=== PATIENT | female | born 1955 | race Caucasian/White ===

== ENCOUNTER 2020-01-24 07:37 | Outpatient (CLI) | payer MEDICARE, MEDICAID, SELFPAY ==
--- NOTE | 2020-01-24 10:30 | DI.NM_ITS ---
APPROVED REPORT Exam: Exercise Treadmill Patient Location: Out-Patient Room/Bed: Stress Nurse: Marianela Dewitt RN BMI: 0 Baseline Rhythm: Sinus Rhythm Comment: Abnormal R wave Progression--early transition. Indications: Patient reports having heart palpitations and midsternal chest pressure (no radiation) b oth at rest and with activity for the past month. Medical History Medical History: Severe obesity, COPD, ? Sleep Apnea, Sciatica. Cardiac Medications: Hydrochlorothiazide Allergies: No known drug allergies Cardiac Risk Factors: FHX of CAD, HTN, Hyperlipidemia, COPD Previous Cardiac Procedures: None Pretest Chest Pain Characteristics: None Exercise History: Sedentary Lung Sounds: Clear to auscultation Heart Sounds: Regular Stress Test Details Test: Exercise stress testing was performed using a Ajith protocol. Nuclear Acquisition: Rest Tc-99m/Stress Tc-99m 1 day Rest Isotope: Tc-99m Sestamibi. Dose: 11.5 Date: 01/24/2020 Injection Time: 1030 Stress Isotope: Tc-99m Sestamibi. Dose: 37.6 Date: 01/24/2020 Injection Time: 1210 HR Resting HR Supine: 86 bpm Max Heart Rate (APMHR): 155 bpm Resting HR Standin bpm Target HR (85% APMHR): 131 bpm Max HR Achieved: 158 bpm % of APMHR: 101 HR response to stress: Normal HR response to stress BP Resting BP Supine: 158/76 mmHg Resting BP Standin/78 mmHg Max BP: 192/76 mmHg BP response to stress: Normal blood pressure response to stress. ECG Resting ECG: Sinus Rhythm Comment: Abnormal R wave progression--early transition Stress ECG: Sinus Tachycardia ST Change: Normal Recovery ECG: Sinus Rhythm Recovery Arrhythmia: None Clinical Reason for Termination: Dyspnea Stress Symptoms: None per patient Exercise duration: 4 min40 sec Highest Stage Reached: Stage 2: 2.5 mph at 12% grade. Exercise capacity: 6.63 METs Functional Capacity: Average Capacity Stress ECG Conclusion 1. Resting electrocardiogram was normal. Patient exercised on the Ajith protocol to a workload of 6. 63 METS and achieved 100% of predicted heart rate for age 2. Normal heart rate and blood pressure response to exercise 3. Electrocardiographically negative for myocardial ischemia 4. No significant dysrhythmia Stress Test Summary STAGE Time (mins) Speed (mph) Grade (%) HR BP SYMPTOMS METS Supine 86 158/76 Standing 107 160/78 1 3 1.7 10 138 178/64 4.6 1 min recovery 143 192/76 3 min recovery 117 176/78 6 min recovery 107 166/72 MPI Conclusion Normal myocardial perfusion scan without evidence of ischemia or prior infarction. Ejection fraction 77%. Radiologist Interpretation Radiologist agrees with Wood Gluer's Interpretation. Radiologist Interpretation by: Barbara Mart MD Interpretation Date/Time: 01/24/2020 14:10:37
== END 2020-01-24 07:57 ==
PROVIDERS: PCP Registered Nurse; Visit Provider Internal Medicine Interventional Cardiology
DX: R00.2 Palpitations (principal); R07.89 Other chest pain; R06.00 Dyspnea, unspecified; I10 Essential (primary) hypertension; E78.5 Hyperlipidemia, unspecified; J44.9 Chronic obstructive pulmonary disease, unspecified; Z82.49 Family history of ischemic heart disease and other diseases of the circulatory system
CPT/HCPCS: 78452; 93016; 93018; 93017

== ENCOUNTER 2022-12-23 11:46 | Outpatient (CLI) | payer OTHER, MEDICAID, SELFPAY ==
--- NOTE | 2022-12-23 11:08 | DI.RAD_ITS ---
Exam(s) XR STANDING ALIGNMENT EXAM: XR STANDING ALIGNMENT CLINICAL HISTORY: right knee pain. TECHNIQUE: 2D digital imaging was performed. COMPARISON: No exams were available for comparison FINDINGS: 3 views There is [id number] narrowing of the medial compartment of right knee Verus deformity. Lateral com partment is relatively preserved. There is mild narrowing of the medial compartment of the opposite- left knee. Lateral compartment left knee appears unremarkable. Degenerative changes are noted in th e left ankle joint. Mild narrowing of hip joint spaces bilaterally. IMPRESSION: As above. DATA REPOSITORY: RADIATION DOSE DELIVERED:
--- NOTE | 2022-12-23 11:12 | DI.RAD_ITS ---
Exam(s) XR KNEE RT 1V EXAM: XR KNEE RT 1V CLINICAL HISTORY: right knee DJD. TECHNIQUE: 2D digital imaging was performed. COMPARISON: CR XR STANDING ALIGNMENT from 12/23/2022 FINDINGS: Single lateral view: There is advanced [id number] narrowing medial compartment. Also significant degenerative changes e vident the patellofemoral compartment. IMPRESSION: As above. DATA REPOSITORY: RADIATION DOSE DELIVERED:
== END 2022-12-23 11:47 | disposition home or self-care (01) ==
LOC: DIORS 11:46
PROVIDERS: PCP Registered Nurse; Referring Provider Registered Nurse; Visit Provider Student in an Organized Health Care Education/Training Program
DX: M17.11 Unilateral primary osteoarthritis, right knee (principal)
CPT/HCPCS: 99203; 73560; 77073

== ENCOUNTER 2023-01-31 02:52 | Outpatient (CLI) | payer OTHER, MEDICAID, SELFPAY ==
[2023-01-31 14:10] LABS: HCT 38.1 % (36.0-46.0); HGB 12.8 g/dL (11.2-15.7); MCH 28.3 pg (27.0-33.0); MCHC 33.6 % (32.0-36.0); MCV 84 fL (80-95); MPV 7.9 fL (8.0-11.0); Platelet Count 282 10^3/uL (130-400); RBC 4.53 10^6/uL (3.93-5.22); RDW 13.1 % (11.7-14.6); RDW-SD 40.2 fL; WBC 9.67 10^3/uL (4.4-10.8)
[2023-01-31 14:38] LABS: Anion Gap 7.1 mmol/L (3-11); BUN 16 mg/dL (7-18); CO2 25.9 mmol/L (21.0-32.0); CREATININE 1.4 mg/dL (0.55-1.02); Calcium 9.3 mg/dL (8.5-10.1); Chloride 103 mmol/L (98-107); Estimated GFR 40.98 (mL/min/1.73m2); Glucose 117 mg/dL (74-106); Potassium 4.5 mmol/L (3.5-5.1); Sodium 136 mmol/L (136-145)
== END 2023-01-31 02:53 | disposition home or self-care (01) ==
LOC: LBO 02:52
PROVIDERS: PCP Registered Nurse; Visit Provider Student in an Organized Health Care Education/Training Program
DX: M25.561 Pain in right knee (principal); M17.11 Unilateral primary osteoarthritis, right knee; Z01.818 Encounter for other preprocedural examination; Z01.812 Encounter for preprocedural laboratory examination
CPT/HCPCS: 36415; 80048; 85027

== ENCOUNTER 2023-02-08 07:41 | Day surgery (SDC) | payer OTHER, MEDICAID, SELFPAY ==
[2023-02-08] VITALS (9 sets, daily range): BP systolic 115–135; BP diastolic 53–86; PULSE 74–84; RESP 14–20; TEMP 36.1–36.6; O2SAT 96–100; BMI 41.5
[2023-02-08] MEDS: Acetaminophen 500 MG TAB 1000 MG PO (08:27)
[2023-02-08] MEDS: Celecoxib 200 MG CAP 400 MG PO (08:27)
[2023-02-08] MEDS: Gabapentin 300 MG CAP PO (08:28)
--- NOTE | 2023-02-08 08:41 | ANES.PREOP_ITS ---
General Info Date of Service Date Performed: 02/08/23 Height: 5 ft 2 in Weight: 103.2 kg Body Mass Index (BMI): 41.5 Surgical Procedure: Operation Date: 02/08/23 10:55 Proposed Procedure Side Surgeon p Knee Total Arthroplasty, Cementless PS Right Kenny De Los Santos MD Meds Allergies and Home Medications Allergies Allergy/AdvReac Type Severity Reaction Status Date / Time No Known Allergies Allergy Verified 02/08/23 08:06 Home Medication Medication Instructions Recorded omeprazole 20 mg capsule,delayed 20 mg PO DAILY 10/27/22 release magnesium oxide 500 mg capsule 500 mg PO BID 01/31/23 lisinopril 5 mg tablet 10 mg PO DAILY 02/01/23 acetaminophen 500 mg tablet 1,000 mg PO Q8H PRN pain #90 tabs 02/08/23 acetaminophen 500 mg tablet mg 02/08/23 aspirin 81 mg tablet,delayed 81 mg PO BID 30 days #60 tabs 02/08/23 release celecoxib 200 mg capsule (Celebrex) 200 mg PO BID PRN #60 caps 02/08/23 dexamethasone 4 mg tablet 4 mg PO DAILY #2 tabs 02/08/23 docusate sodium 100 mg capsule 100 mg PO BID #30 caps 02/08/23 (Colace) gabapentin 300 mg capsule 300 mg PO QHS #14 caps 02/08/23 oxycodone 5 mg tablet 5 mg PO Q4H PRN #18 tabs 02/08/23 pantoprazole 40 mg tablet,delayed 40 mg PO DAILY #14 tabs 02/08/23 release Current Visit Medications: Current Medications Generic Name Dose Route Start Last Admin Trade Name Abdiq PRN Reason Stop Dose Admin Acetaminophen 1,000 mg 02/08/23 06:00 02/08/23 08:27 Acetaminophen 500 Mg Tab PO 02/08/23 16:00 1,000 mg PREOP ALEXANDREA Administration Celecoxib 400 mg 02/08/23 06:00 02/08/23 08:27 Celecoxib 200 Mg Cap PO 02/08/23 16:00 400 mg PREOP ALEXANDREA Administration Gabapentin 300 mg 02/08/23 06:00 02/08/23 08:28 Gabapentin 300 Mg Cap PO 02/08/23 16:00 300 mg PREOP ALEXANDREA Administration Hydromorphone HCl 0.5 mg 02/08/23 07:27 Hydromorphone 2 Mg/Ml Syr IVP 03/10/23 07:26 Q2H PRN PRN Tranexamic Acid 1,000 mg/ 60 mls @ 360 mls/hr 02/08/23 06:00 Sodium Chloride IVPB 02/08/23 16:00 PREOP ALEXANDREA Ringer's Solution 1,000 mls @ 80 mls/hr 02/08/23 06:00 IV 02/08/23 23:59 INFUSION ALEXANDREA Cefazolin Sodium/Dextrose 2 gm in 50 mls @ 100 mls/hr 02/08/23 06:00 Ancef Duplex IVPB 02/08/23 23:59 PREOP ALEXANDREA IV Miscellaneous Supplies 1 each 02/08/23 06:00 Iv Access IV 02/08/23 23:59 DIRECTED ALEXANDREA Ondansetron HCl 4 mg 02/08/23 07:27 Ondansetron 4 Mg/2 Ml Vial IVP 03/10/23 07:26 Q6H PRN PRN Nausea Oxycodone HCl 0 mg 02/08/23 07:27 Oxycodone 5 Mg Tab PO 03/10/23 07:26 Q3H PRN PRN Pain Sodium Chloride 0 ml 02/08/23 06:00 Normal Saline Flush 10 Ml Syr IV 02/08/23 23:59 PRN PRN Sodium Chloride 0 ml 02/08/23 06:00 Normal Saline 10 Ml Vial IJ 02/08/23 23:59 DIRECTED PRN Sterile Water 0 ml 02/08/23 06:00 Water,Injection,Sterile 10 Ml Vial IJ 02/08/23 23:59 DIRECTED PRN PFSH Active Problems Active Problems: Problem Status Onset Code Benign essential hypertension I10 Degenerative joint disease of right knee M17.11 Medical History Medical History (Updated 02/08/23 @ 08:31 by Joleen White RN) Arthritis, lumbar spine COPD (chronic obstructive pulmonary disease) GERD (gastroesophageal reflux disease) ARAM (obstructive sleep apnea) CPAP Surgical History Surgical History History of x2 History of thyroidectomy, subtotal Right removed Tobacco Smoking/Tobacco Use Status: Never Alcohol Alcohol Intake: never Substance Use Substance use: Never Substance use type: does not use Vital Signs and Lab Results Vital Signs Most Recent Vital Signs in EMR: Most Recent Vital Signs Temp Pulse Resp BP Pulse Ox 36.6 C 82 18 135/67 97 02/08/23 08:00 02/08/23 08:00 02/08/23 08:00 02/08/23 08:00 02/08/23 08:00 Lab Results Blood Type / Crossmatch: No Data to Display Complete Blood Count: White Blood Count 9.67 10^3/uL (4.4-10.8) 01/31/23 14:00 Red Blood Count 4.53 10^6/uL (3.93-5.22) 01/31/23 14:00 Hemoglobin 12.8 g/dL (11.2-15.7) 01/31/23 14:00 Hematocrit 38.1 % (36.0-46.0) 01/31/23 14:00 Platelet Count 282 10^3/uL (130-400) 01/31/23 14:00 Complete Metabolic Panel: Sodium 136 mmol/L (136-145) 01/31/23 14:00 Potassium 4.5 mmol/L (3.5-5.1) 01/31/23 14:00 Chloride 103 mmol/L (98-107) 01/31/23 14:00 Carbon Dioxide 25.9 mmol/L (21.0-32.0) 01/31/23 14:00 BUN 16 mg/dL (7-18) 01/31/23 14:00 Creatinine 1.4 mg/dL (0.55-1.02) H 01/31/23 14:00 Est GFR (CKD-EPI 2020) 40.98 (mL/min/1.73m2) 01/31/23 14:00 Calcium 9.3 mg/dL (8.5-10.1) 01/31/23 14:00 Glucose 117 mg/dL (74-106) H 01/31/23 14:00 Liver Function Panel: No Data to Display Coagulation Panel: No Data to Display Cardiac Panel: No Data to Display Arterial Blood Gas: No Data to Display Venous Blood Gas: No Data to Display Pancreas Panel: No Data to Display Thyroid Panel: No Data to Display Infectious Disease: No Data to Display Blood Cultures: No Data to Display Toxicology Panel: No Data to Display Imaging and Studies Imaging and Studies Study information below may be from another EMR and interpreted by another provider. Please see original notes in EMR for more complete details. Stress Test Summary: Patient Name: BRENNEN MARIN #: [id number]: DI Ordering Provider: Alex Blue M.D. : RAJ CLI Primary Care Provider: Floyd Hidalgo of Exam: 01/24/20ex: F A dmission Date: 01/24/20 : 1955 Age: 64 Exam(s) a NM:NM MPI rest & stress grp APPROVED REPORT Exam: Exercise Treadmill Patient Location: Out-Patient Room/Bed: Stress Nurse: Marianela Dewitt RN BMI: 0 Baseline Rhythm: Sinus Rhythm Comment: Abnormal R wave Progression--early transition. Indications: Patient reports having heart palpitations and midsternal chest pressure (no radiation) both at rest and with activity for the past month. Medical History Medical History: Severe obesity, COPD, ? Sleep Apnea, Sciatica. Cardiac Medications: Hydrochlorothiazide Allergies: No known drug allergies Cardiac Risk Factors: FHX of CAD, HTN, Hyperlipidemia, COPD Previous Cardiac Procedures: None Pretest Chest Pain Characteristics: None Exercise History: Sedentary Lung Sounds: Clear to auscultation Heart Sounds: Regular Stress Test Details Test: Exercise stress testing was performed using a Ajith protocol. Nuclear Acquisition: Rest Tc-99m/Stress Tc-99m 1 day Rest Isotope: Tc-99m Sestamibi. Dose: 11.5 Date: 01/24/2020 Injection Time: 1030 Stress Isotope: Tc-99m Sestamibi. Dose: 37.6 Date: 01/24/2020 Injection Time: 1210 HR Resting HR Supine: 86 bpmMax Heart Rate (APMHR): 155 bpm Resting HR Standin bpmTarget HR (85% APMHR): 131 bpm Max HR Achieved: 158 bpm % of APMHR: 101 HR response to stress: Normal HR response to stress BP Resting BP Supine: 158/76 mmHg Resting BP Standin/78 mmHg Max BP: 192/76 mmHg BP response to stress: Normal blood pressure response to stress. ECG Resting ECG: Sinus Rhythm Comment: Abnormal R wave progression--early transition Stress ECG: Sinus Tachycardia ST Change: Normal Recovery ECG: Sinus Rhythm Recovery Arrhythmia: None Clinical Reason for Termination: Dyspnea Stress Symptoms: None per patient Exercise duration: 4 min40 sec Highest Stage Reached: Stage 2: 2.5 mph at 12% grade. Exercise capacity: 6.63 METs Functional Capacity: Average Capacity Stress ECG Conclusion 1. Resting electrocardiogram was normal. Patient exercised on the Ajith protocol to a workload of 6.63 METS and achieved 100% of predicted heart rate for age 2. Normal heart rate and blood pressure response to exercise 3. Electrocardiographically negative for myocardial ischemia 4. No significant dysrhythmia Stress Test Summary STAGETime (mins)Speed (mph)Grade (%)[id number] [id number]/76 [id number]/78 131.725542805/644.6 1 min [id number]/76 3 min [id number]/78 6 min [id number]/72 MPI Conclusion Normal myocardial perfusion scan without evidence of ischemia or prior infarction. Ejection fraction 77%. Radiologist Interpretation Radiologist agrees with Medical Staff Services Manager's Interpretation. Radiologist Interpretation by: Barbara Mart MD Interpretation Date/Time: 01/24/2020 14:10:37 Ordered By: Alex Blue M.D. CC: BETTY GUSTAFSON,CORNELL Dictated By: Rekha Contreras M.D. 01/24/20 1231 <Electronically signed by Rekha Contreras M.D. in OV> 01/24/20 1422 Transcribed By: Rekha Contreras MD Anesthesia Assessment and Plan Anesthesia History Personal History: No History of Anesthesia Complications Family History: No Family History of Anesthesia Complications Exercise Tolerance Exercise Tolerance: Metabolic Equivalents>4 Pertinent Negatives Pertinent Negatives: No Symptoms of GERD, No Major Cardiovascular Symptoms or Complaints, No Major Pulmonary Symptoms or Complaints and No History of CVA/TIA Cardiac & Pulmonary Exam Cardiac Exam: Normal S1/S2 Heart Sounds Pulmonary Exam: Clear Bilateral Breath Sounds Implantable Cardiac Device Does patient have a Pacemaker or an ICD?: No Airway Exam Known Difficult Airway: No Mallampati Class: 2 Mouth Opening: Normal (> 3cm) Thyromental Distance: Greater than 3 cm Neck Range of Motion: Full ROM Neck Circumference: Normal Teeth Condition: Normal Dentition ASA Classification ASA Score: ASA 2 Emergency Case?: No NPO Status NPO Status: NPO Clears >2 hours, Solids >8 hours Anesthesia Plan Resuscitation Status: Full Code Anesthesia Technique: Spinal Anesthesia (with sedation. GETA as backup plan) Airway Planned: Natural Airway Monitors Used: Standard Monitors Preoperative Comments:: Significant lumbar arthritis: discussed Spinal vs GETA. Will attempt spinal as primary.
[2023-02-08] MEDS: Lactated Ringers 1,000 ML 80 ML IV (08:50)
--- NOTE | 2023-02-08 10:12 | ANES.NERVE_ITS ---
Nerve Block Single Injection Procedure Date and Time Date Performed: 02/08/23 Procedure Start: 09:50 Location Where Procedure Performed Procedure Location: Day Surgery Unit Reason Performed: Postoperative Analgesia Requesting Provider: Kenny De Los Santos Timeout Performed Timeout Performed: Yes Monitoring Used ECG, Blood Pressure and SpO2 Sterility Sterility: Hand Hygiene, Surgical Cap, Surgical Mask, Sterile Gloves and Chlorhexidine Sedation Given During Procedure Sedation Given (Indicate Dose Given): No Sedation given Patient Mental Status Patient Mental Status: Awake Nerve Block 1st Nerve Block: Laterality: Right Block Type: Adductor Canal Ultrasound Image Saved?: Yes Needle / Catheter Used: 100mm SonoPlex II Local Anesthetic Bolus (Indicate Dose Given): Lidocaine used for local infiltration of skin, Injected in 3-5ml increments after negative blood aspiration and Bupivacaine 0.25% Dose:: 15 ml Additives (Indicate Dose Given): None Ultrasound: Sterile probe cover and gel used Nerve Stimulator: Supplement to Ultrasound use and No twitch or parast hesia noted < 0.5 mA Paresthesia: None Post Procedure Pain score (0-10): 5 Procedure Tolerated: No Complications and Patient tolerated well Procedure Outcome: Successful Performed By: Ken Flores
[2023-02-08] MEDS: ceFAZolin 2 GM/50 ML BAG IVPB (10:46)
[2023-02-08] MEDS: oxyCODONE 5 MG TAB PO (14:14)
--- NOTE | 2023-02-08 14:51 | PT.INIE ---
PT Notes Visit Reasons: Right knee DJD Physical Therapy Day Surgery Initial Evaluation Date: 02/08/2023 Referring Doctor: ISHAAN Black PT Orders: PT CONSULT: S/P Ortho surgery Precautions: WBAT on right LE with AD. Patient Profile/Admitting Diagnosis: Tamiko is a 67-year-old female with degenerative joint disease of the right knee and is status post right total knee arthroplasty on postoperative day 0. PMHX: Medical History?(Updated 01/31/23 @ 13:11 by Mary Grace Pimentel) COPD (chronic obstructive pulmonary disease) GERD (gastroesophageal reflux disease) ARAM (obstructive sleep apnea) CPAP Surgical History?(Updated 01/31/23 @ 13:11 by Mary Grace Pimentel) History of x2 History of thyroidectomy, subtotal Right removed Social History/Home Situation: Lives alone in a private home with 3 steps to enter with 1 rail. Daughters live close by and have been good support as needed. Daughter Jade worsk as one of the hospital RTs. Equipment Owned/DME: [facility] Subjective: Reports of a 6/10 pain in the front of the right thigh that persisted throughout session. Initially reported mild lightheadedness that subsided eventually in the walk. Per Nurse Tita patient has had extensive intraoperative navigation which may explain her pain level. Has been given pain pill less than an hour prior to PT visit. Objective: General Observation: Supine in bed. Morro wraps to right LE. Cryo/Cuff to right knee. TEDs to left leg. Mental Status: Alert and oriented x4 Pain: 6/10 pain in the right distal thigh and right knee. ROM: Right Lower Extremity: Hip flexion WFL. Hip abduction WFL. Knee flexion 45 to 90 degrees with pain report. Knee extension -45 degrees. Ankle dorsiflexion WFL. Ankle plantarflexion WFL. Left Lower Extremity: Hip flexion WFL. Hip abduction WFL. Knee flexion WFL. Ankle dorsiflexion WFL. Ankle plantarflexion WFL. Strength: Right Lower Extremity: Hip flexors 4/5. Hip abductors 4/5. Knee flexors 3-/5. Knee extensors 3-/5. Ankle dorsiflexors 5/5. Ankle plantarflexors 5/5. Left Lower Extremity:Hip flexors 5/5. Hip abductors 5/5. Knee flexors 5/5. Knee extensors 5/5. Ankle dorsiflexors 5/5. Ankle plantarflexors 5/5. Sensation: Intact as to pain and light pressure in bilateral lower extremities Bed Mobility/Transfers: Supine to sit contact-guard assist Sit to stand contact-guard assist Stand to sit standby assist Bed to chair contact-guard assist Bed to toilet seat contact-guard assist Toilet seat to bedside chair contact-guard assist Gait: Tolerated level surface ambulation of 100 feet using front-wheeled walker with step to gait pattern with report of 6/10 pain in the distal anterior right thigh and the right knee. Reported mild lightheadedness that did not require seated rest but minimally limited mobility performance. Gait speed significantly reduced due to pain report. Also provided assistance with walking to toilet for voiding urine and return to bedside chair from bathroom. Stairs: Negotiated 2 x 6 inch steps and a 3 x 4 inch steps holding onto 1 rail with 1 hand and with a single-point cane on the other hand with step-to gait pattern requiring minimal verbal cues for safety and correct technique. Balance: Static Sitting: Normal Dynamic Sitting: Normal Static Standing: Fair Dynamic Standing: Fair Special Tests: Mobility Limitations Standardized Measure [facility] AM-PAC 6 clicks Basic Mobility Inpatient Short Form: Raw Score: 18 CMS Score: 47% deficit Informed Consent/Education: Patient instructed in purpose of PT consult. Packet containing TKA exercise protocol has been given to patient. Education and training on initial set of exercises that can be done at home have been completed with patient and patient's daughter as follows: Access Code: [email or web address] URL: [email or web address] Date: 02/08/2023 Prepared by: Mary Abdalla Exercises - Supine Quadricep Sets - 1 x daily - 7 x weekly - 1 sets - 10 reps - 5 hold - Supine Heel Slide - 1 x daily - 7 x weekly - 1 sets - 10 reps - 5 hold - Supine Ankle Pumps - 1 x daily - 7 x weekly - 1 sets - 10 reps - 5 hold - Small Range Straight Leg Raise - 1 x daily - 7 x weekly - 1 sets - 10 reps - 5 hold - Seated March - 1 x daily - 7 x weekly - 1 sets - 10 reps - 5 hold Assessment: Patient requires the use of a front wheeled walker to maximize independence and reduce fall risk. Patient presents with clinical signs and symptoms consistent with current/admitting diagnoses that have resulted to mobility limitations, gait instability, generalized weakness, and impairment of motor control as demonstrated by the following impairment level findings: 1. Decreased strength to R knee major muscle groups 2. Impaired standing balance 3. Limitation of joint range of motion in R knee Impairments are contributing to the following functional limitations: 1. Inability to safely ambulate without assistive device 2. Increase completion time for mobility ADL performance 3. Increased fall risk Patient is assessed as a 24506 moderate complexity based on the following: History: 67-year-old male with impairment level findings, functional limitations, and past medical history as indicated above Examination: Demonstrable impairment in strength, balance, and mobility level with underlying impairments and functional limitations as documented above Presentation: Evolving Decision Makin moderate complexity Goals: N/A. PT evaluation and 1-2 treatment sessions only for functional mobility training using recommended AD and for HEP instruction. Plan of Care/Treatment Plan: N/A. PT evaluation and 1-2 treatment session only for functional mobility training using recommended AD and for HEP instruction. DISCHARGE RECOMMENDATIONS: Home when medically cleared by orthopedic surgeon. Recommend outpatient PT services in order to optimize functional mobility outcomes and facilitate return to independent community ambulation without an assistive device. TREATMENT CODE/TIME: 45678 x 20 minutes, 35043 x 4 minutes beginning at 14:54 PM. Thank you for the opportunity to participate in the care of this patient. Mary Abdalla PT, DPT, CLT [facility] [place], [place]
--- NOTE | 2023-02-08 16:05 | W.PM.DS.N ---
Date of service: 02/08/23 Time of Service: 16:00 Discharge Plan Disposition Patient Disposition: Home Condition: Good Discharge Details Reason For Visit: Right knee DJD Attending Provider: Kenny De Los Santos Primary Care Provider: SARANYA WASHBURN Home Meds and New Rx's Prescriptions: New acetaminophen 500 mg tablet 1,000 mg PO Q8H PRN Qty: 90 0RF Rx Instructions: Take two tablets up to every 8 hours as needed for pain aspirin 81 mg tablet,delayed release (DR/EC) 81 mg PO BID 30 Days Qty: 60 0RF celecoxib [Celebrex] 200 mg capsule 200 mg PO BID PRNQty: 60 0RF Rx Instructions: Take one tablet twice daily for pain and inflammation docusate sodium [Colace] 100 mg capsule 100 mg PO BID Qty: 30 0RF dexamethasone 4 mg tablet 4 mg PO DAILY Qty: 2 0RF Rx Instructions: Take one tablet once daily for two days gabapentin 300 mg capsule 300 mg PO QHS Qty: 14 0RF Rx Instructions: Take one tablet at bedtime oxycodone 5 mg tablet 5 mg PO Q4H PRNQty: 18 0RF Rx Instructions: Take one tablet up to every 4 hours as needed for severe postoperative pain pantoprazole 40 mg tablet,delayed release (DR/EC) 40 mg PO DAILY Qty: 14 0RF Continued magnesium oxide 500 mg capsule 500 mg PO BID omeprazole 20 mg capsule,delayed release(DR/EC) 20 mg PO DAILY lisinopril 5 mg tablet 10 mg PO DAILY Discontinued meloxicam 15 mg tablet 15 mg PO DAILY acetaminophen [Tylenol Extra Strength] 500 mg tablet 1,000 mg PO QHS PRN No Action acetaminophen 500 mg Tablet Discharge Instructions Additional Instructions: Total Knee Discharge Instructions Activity: The most important activity is to walk and to work on gentle motion (both flexion and extension). You should try to take short walks a few times a day. It is important that when resting you work on keeping the knee straight. Avoid putting a pillow behind the knee as this will encourage flexion. Work on range of motion exercises as provided by Physical Therapy. - Start outpatient physical therapy within 2 weeks. - You should wear the LEORA hose on both legs for 2 weeks. You may remove these at night. You may also use any compression sock in place of the LEORA hose. - Utilize [employer] to review exercises, see videos on exercises and obtain basic information pertaining to your surgery and your recovery. Dressing: Remove the Morro wrap by 2 days after your surgery and put on the LEORA stocking given to you from the hospital. Keep the surgical dressing (underneath the MORRO wrap) in place for at least one week. After the first week it may be removed and replaced with light gauze and tape or nothing. The wound and dressing may get wet after 3 days but avoid soaking the dressing or otherwise it will need to be changed. Many people prefer covering the dressing with cling wrap (saran wrap) to minimize it from getting soaked. If it gets wet, just pat dry. If it starts to peel off then it will need to be changed. Medications: - You should take Tylenol and anti-inflammatory Celebrex as your primary pain control medications. If the Celebrex is too expensive or not covered, please call the office for another alternative (Advil/Ibuprofen or Naproxen/Aleve) - You have been prescribed a stronger pain medication Oxycodone for breakthrough pain, take as needed as prescribed. - You have also been prescribed a stomach acid reduction agent Pantoprozole to help reduce stomach acid and reflux. - You have been prescribed Gabapentin to take at night for restlessness and nerve pain. - You will be taking Aspirin 81mg twice a day for DVT prevention unless instructed otherwise. - You have also been prescribed Decadron to take to control post-operative nausea and pain. You will start this tomorrow. - If you have constipation you should take Colace (which has been prescribed) or Miralax (which is available [id number]). It takes most people 3-4 days to have a bowel movement. Follow-up: 2 weeks If you have any acute concerns or questions, please do not hesitate to contact the office at [phone]. You may contact Dr. De Los Santos with any questions after hours through the hospital at [phone] or on his cell phone at [phone]. Stand Alone Forms: Anesthesia Discharge Inst., Anes.Nerve Block Instructions Referrals: Kenny De Los Santos MD [ [facility] STAFF PHYSICIAN] - Equipment/Supplies: Walker Activity:: Elevate Remove Dressings/Wound Care:: Do Not Remove Shower/Bathe:: Cover Diet:: As Tolerated Discharge Orders Discharge Orders: Discharge Order (Routine); Ordered 02/08/23 Ordered By: Kenny De LosS antos DS: Summary Time Spent with Patient providing and/or coordinating discharge services: Less than 30 minutes Status at Discharge Functional status at discharge: uses cane/walker Overall status at discharge: patient is progressing back to baseline Mental Status: mental status grossly normal Speech and Movement: speech and movement normal Mood: congruent mood Affect: normal affect Exam Psych Mental Status: mental status grossly normal Speech and Movement: speech and movement normal Mood: congruent mood Affect: normal affect DS: Data Vitals/I&O Vitals and I&O: Intake & Output 02/07/23 02/07/23 02/08/23 11:59 23:59 11:59 Weight 227 lb PFSH All Active Problems (Updated 02/08/23 @ 08:31 by Joleen White RN) Benign essential hypertension (Acute) Degenerative joint disease of right knee (Chronic) Medical History (Updated 02/08/23 @ 08:31 by Joleen White RN) Arthritis, lumbar spine COPD (chronic obstructive pulmonary disease) GERD (gastroesophageal reflux disease) ARAM (obstructive sleep apnea) CPAP Surgical History History of x2 History of thyroidectomy, subtotal Right removed Social History Smoking/Tobacco Use Status: Never Smoking risk assessment performed?: Yes Alcohol Intake: never Drug use: Never Substance use type: does not use Do you feel safe at home: Yes Do you feel safe in your relationship?: Yes Additional Social history: unable to assess privately 02/08/23-[facility] Time Spent with Patient Time Spent with Patient: <45 minutes Time was spent: obtaining and/or reviewing separately otained hiistory, ordering medications,tests, procedures, counseling the patient and care coordination
--- NOTE | 2023-02-08 16:36 | W.ANESPOSTOP ---
Postoperative Evaluation Date, Time and Location Date Performed: 02/08/23 Time Performed: 16:36 Patient Location: Day Surgery Unit Vital Signs Most Recent Imported Vital Signs: Most Recent Vital Signs Temp Pulse Resp BP Pulse Ox 36.1 C L 74 20 133/74 97 02/08/23 14:16 02/08/23 14:16 02/08/23 14:16 02/08/23 14:16 02/08/23 14:16 Pain Score Most Recent Pain Score: Most Recent Pain Score Pain Level 6 02/08/23 14:16 Assessment Mental Status: Awake (Alert & Oriented to Patient Baseline) Airway and Respiratory Function: Patent airway with normal (patient baseline) respiratory exam Cardiovascular Function: Hemodynamically Stable Hydration Status: Adequately Hydrated Nausea & Vomiting: No Nausea or Vomiting Pain: Pt. Denies Any Pain Peripheral Nerve Block: Regional nerve block not resolved at time of post operative discharge
--- NOTE | 2023-02-08 17:12 | W.PM.OP ---
Date of service: 02/08/23 Time of Service: 12:30 Operative Note Operative Note DATE OF PROCEDURE: 02/08/23 PRE-OP DIAGNOSIS: Right Knee Osteoarthritis with severe varus deformity POST-OP DIAGNOSIS: same PROCEDURE: Right Total Knee Replacement with Intraoperative Navigation SURGEON: Kenny De Los Santos OUTSIDE [employer] SALES: Mary Grace Pimentel ANESTHESIA TYPE: Spinal Refer to Anesthesia Record ESTIMATED BLOOD LOSS: 400 PATHOLOGY: none sent TOURNIQUET TIME: 0 COMPLICATIONS: None Patient was transported to: PACU Patient's condition: stable Implants: 1. Depuy Attune Cementless Posterior Stabilized Femoral Component, Size 6 Narrow 2. Depuy Attune Cementless Fixed Bearing Tibial Component, Size 4 3. Depuy Attune 6x12 PS/FB Poly 4. Depuy Attune Patellar Component, Size 38 Indications: I have seen Tamiko in clinic for symptoms of RIGHT knee arthritis, confirmed with radiographic findings. She has exhausted nonoperative methods and was having significant limitations in daily function and desired better function and less pain. I discussed the technical details of a knee replacement. I explained the risks of the procedure to include, but not limited to, bleeding, infection, pain, stiffness, fracture, damage to nerves and vessels, damage to muscles and tendons, loosening, need for repeat procedure, blood clot and cardiopulmonary demise. Despite these risks, Tamiko elected to proceed. Findings: There was significant signs of arthritis throughout the knee with notable deformity of the anteromedial tibia. There were loose bony fragments and calcifications and deformity of the medial soft tissues. Procedure Description: Tamiko was greeted in the preoperative holding area where the correct side was identified and marked. The consent was reviewed with the patient and signed. The history and physical was updated. All questions were answered. Preoperative mediacations were administered: Acetaminophen 1000mg, Celebrex 400mg, and Gabapentin 300mg. An adductor canal block was then administered by the anesthesia team in the DSU. She was taken back to the operating room. A spinal anesthestic was then administered. The patient was placed into the supine position on the operating room table. A nonsterile tourniquet was placed high onto the leg. Posts were placed for positioning during the procedure. All bony prominences were well padded. Prophylactic antibiotics in the form of Cefazolin were administered. 1g of Tranxemic Acid was given intravenously within 30 minutes of incision. The right leg was then prepped with Chloraprep and draped in a standard fashion with impervious stockinette. A second prep with Chloraprep was performed prior to application of Iodine impregnated skin protection. A timeout to confirm correct identity, side and site, procedure, allergies, anesthesia, and medical concerns was performed. With the knee in some flexion, a midline incision was made overlying the knee. Full thickness skin flaps were raised once the extensor mechanism was encountered. These were raised medially and laterally. Any bleeding was controlled with electrocautery. Once the extensor mechanism was fully exposed, a medial parapatellar arthrotomy was performed in a flexed position. All bleeding from the arthrotomy and the geniculate arteries was coagulated. A medial subperiosteal peel was performed with electrocautery to the midcoronal plane. Due to the significant varus deformity the entire medial tibial plateau was exposed. The fat pad was removed while keeping the patellar tendon protected. The anterior distal femur synovium was removed for later visualization. The ACL and PCL were resected and the anterior horn of the lateral meniscus was transected. The knee was then flexed with the patella everted. Large osteophytes from the tibia were removed. Large osteophytes from the femur were removed. There is incredible deformity of the anteromedial tibia with downward slope into tibial surface with rounding of the anterior tibia and smooth calcification seen in the anterior medial soft tissues, likely from articulation of the anterior femur. There was loose bone medially which likely represented osteophyte which had fractured off with calcifications within the soft tissues. All 3 compartments had significant arthritis. A single starting pin was then placed 1cm anterior to the PCL insertion and the notch in the direction of the femoral head. The OrthoAlign device was applied over the pin. It was oriented to be in line with the epicondylar axis and the trochlear groove. It was then pinned into place. The navigation computer was then turned on and calibrated. The distal femur cut was set at 1 degrees varus and 3.5 degrees flexion. The distal femur cutting guide then was positioned for a 11mm cut. The distal femur was cut with an oscillating saw while protecting the soft tissues. The tibia was then addressed. The OrthoAlign device was placed over the tibial tubercle and medial tibia and secured into position. Once again, OrthoAlign was calibrated and then set for a 2.5 degree varus cut and 3 degrees of posterior slope. With this locked into position, the cut thickness stylus was used to assess cut thickness. The medial side, most involved side, was set for a 2mm cut. This was then held in position and pinned into place with 2 additional pins and a cross pin for stability. The medial and lateral collateral ligaments were protected and the cut was performed. With this completed, it was assessed and noted to be of appropriate dimensions. The guide and OrthoAlign was removed. A spacer block was inserted and the knee was brought into extension to ensure enough space was present. The femur was then sized as a size 6 narrow. The Orthoalign gap balancing device was then placed in extension. This was used to ensure that the ligaments were properly balanced with up to 2 to 3 mm laxity laterally compared medially. The extension gap was measured as 23mm. The knee was then brought into 90 degrees of flexion and the ligament quality and reliability engineer was once again placed. Under the same amount of force the flexion gap was measured. The attending specific jig was placed and the flexion gap was made to match the extension gap. The 4-in-1 cutting guide was the placed. An yusef wing was used to confirm appropriate position of the anterior cut to avoid notching. This cutting guide was ensured to be flush on the cut surface and then pinned into place with headed pins. While protecting the soft tissues, quad tendon, and collateral ligaments, the anterior and posterior cuts were performed with a saw. The central two pins were removed and the posterior and anterior chamfers were cut next. The notch-cutting guide was placed. This was pinned to lateralize the femoral component as much as possible while keeping it flush on the cut surface. This was then pinned into position. A saw was used to make the notch cut. A rasp smoothed the cut surfaces. The medial and lateral menisci were removed. A trial femoral component was then inserted, impacted down to the cut surfaces, and the lug holes were drilled. A provisional trial tibial component was placed and the knee was brought through range of motion. The polyethylene was trialed until there was good flexion and extension with excellent stability to the medial and lateral collaterals. The patella was tracking without thumbs. A size 12mm polyethylene component provided the best range of motion and stability with less than 2mm gapping with medial and lateral stress and full extension without significant hyperextension. The tibial cut surface was fully exposed. The tibia was then sized as a 4. The tibia had been previously marked during trialing to correspond to the center of the tibial component to help with rotation. The trial was aligned to this jacqueline, approximately rotated to the medial 1/3rd of the tibial tubercle. The trial was pinned into place. The tibia was prepared with a reamer and a keel punch and lug holes. The knee was then brought into extension and the patella was measured as 24mm. Using the patellar clamp and cut guide, this was resected to a flat surface with at least 13mm of thickness remaining. The size 38 patella fit the best. This was oriented and then clamped into position. The lugs were drilled. The trial components were removed. The final components were opened on the back table. The periosteal and capsular tissues, especially posteriorly, around the knee were then systematically injected with a periarticular cocktail consisting of 246mg of Ropivacaine, 0.5mg of Epinephrine, 0.08mg of Clonidine, and 30mg of Ketorolac, diluted to 100cc. On the back table, with the implants opened, the cement was mixed. One batch of high viscosity cement was prepared with vacuum assistance. After the cement was ready a small amount was placed on the cut surface of the patella and the patellar button was clamped into position and held. While the cement was hardening, the cementless knee components were placed. Starting with the tibial component, the tibia was subluxed anteriorly and the lug holes of the component were lined up. The tibia was then impacted with an impactor and mallet until the tibial component was in contact with the tibia. The final polyethylene component was inserted. Then, the femoral component was inserted. The lug holes were aligned and the component was impacted into position. The knee was irrigated with Surgiphor Betadine solution. This was allowed to sit in the knee for 3 minutes and then it was thoroughly irrigated out with saline. After the cement had finally cured, approximately 15min, the clamp was removed from the patella and the knee was taken through range of motion. The patella was tracking with a no-thumbs technique. The capsule was then reapproximated with a No. 1 Vicryl at multiple locations. The capsule was finally closed with a No. 2 Stratafix, barbed suture. Deep tissues were then reapproximated with 0 Vicryl and 2-0 Vicryl. The skin was closed with a running 3-0 Monocryl in a subcuticular fashion. This was reinforced with skin glue. A Mepilex silver dressing was applied along with a dywf-ed-hrmyn GISELL wrap. A CryoCuff was applied. Tamiko was transferred to the hospital bed without difficulty an suffering no apparent complication. She has a good prognosis. Physical therapy will start today and without restrictions, weight-bearing as tolerated. Aspirin 81mg BID will be used for DVT prophylaxis.
== END 2023-02-08 16:58 | disposition home or self-care (01) ==
PROVIDERS: PCP Registered Nurse; Visit Provider Student in an Organized Health Care Education/Training Program
PROC: (CPT 27447; principal; 2023-02-08 10:45)
DX: M17.11 Unilateral primary osteoarthritis, right knee (principal); G47.33 Obstructive sleep apnea (adult) (pediatric); J44.9 Chronic obstructive pulmonary disease, unspecified
CPT/HCPCS: 20985; 27447; C1776; 76942; 97162; 97530; J0690; J1100; J2405

== ENCOUNTER 2023-02-24 13:27 | Outpatient (CLI) | payer OTHER, MEDICAID, SELFPAY ==
--- NOTE | 2023-02-24 10:45 | DI.RAD_ITS ---
Exam(s) XR KNEE RT 1V XR STANDING ALIGNMENT EXAM: XR STANDING ALIGNMENT and XR knee RT 1 V CLINICAL HISTORY: 1ST POST OP R TKA. TECHNIQUE: 2D digital imaging was performed. Five images were obtained. COMPARISON: CR XR STANDING ALIGNMENT from 12/23/2022 CR XR KNEE RT 1V from 12/23/2022 CR XR KNEE RT 1V from 02/24/2023 FINDINGS: BONES: There is a left convex scoliosis of the lumbar spine. Moderately severe degenerative changes are also seen in the lumbar spine. The hips are well maintained. Since the prior examination, there has been interval placement of a right total knee replacement. The orthopedic hardware appears in g ood position. The bones are intact and normally mineralized. There are mild degenerative changes se en in the left knee with joint space narrowing and periarticular spurring. The ankles are well maint ained.There is no significant leg length discrepancy. SOFT TISSUE: Normal. IMPRESSION: Interval placement of a right total knee replacement. DATA REPOSITORY: RADIATION DOSE DELIVERED:
== END 2023-02-24 13:28 | disposition home or self-care (01) ==
LOC: DIORS 13:27
PROVIDERS: PCP Registered Nurse; Referring Provider Registered Nurse
DX: Z96.651 Presence of right artificial knee joint (principal); Z47.1 Aftercare following joint replacement surgery
CPT/HCPCS: 73560; 77073

== ENCOUNTER → 2023-03-28 09:20 | Outpatient (BNVA) | payer OTHER, MEDICAID, SELFPAY | PROVIDERS: PCP Registered Nurse; Referring Provider Registered Nurse; Visit Provider Student in an Organized Health Care Education/Training Program | DX: Z47.1 Aftercare following joint replacement surgery (principal); Z96.651 Presence of right artificial knee joint ==

== ENCOUNTER → 2023-05-09 09:49 | Outpatient (BNVA) | payer OTHER, MEDICAID, SELFPAY | PROVIDERS: PCP Registered Nurse; Referring Provider Registered Nurse; Visit Provider Student in an Organized Health Care Education/Training Program | DX: Z47.1 Aftercare following joint replacement surgery (principal); Z96.651 Presence of right artificial knee joint ==

== ENCOUNTER 2024-02-10 11:13 | Outpatient (CLI) | payer OTHER, MEDICAID, SELFPAY ==
--- NOTE | 2024-02-10 10:00 | DI.RAD_ITS ---
Exam(s) XR KNEE RT 2V AP,LAT EXAM: XR KNEE RT 2V AP,LAT CLINICAL HISTORY: ANNUAL F/U R TKA. TECHNIQUE: 2D digital imaging was performed. Three views. COMPARISON: CR XR KNEE RT 1V from 02/24/2023 FINDINGS: BONES: No acute fracture is present. No bony destructive lesion is seen. There has been no change i n the alignment of the total knee prosthesis. Enthesophyte again noted at upper pole of the patella. JOINTS: The knee is normally aligned. No joint effusion is seen. SOFT TISSUE: Venous varicosities. IMPRESSION: Stable appearance of the total knee prosthesis. DATA REPOSITORY: RADIATION DOSE DELIVERED:
== END 2024-02-10 11:14 | disposition home or self-care (01) ==
LOC: DIORS 11:13
PROVIDERS: PCP Physician Assistant; Referring Provider Physician Assistant; Visit Provider Physician Assistant
DX: Z96.651 Presence of right artificial knee joint (principal); Z47.1 Aftercare following joint replacement surgery
CPT/HCPCS: 99213; 73560